=== PATIENT | female | born 1935 | race Caucasian/White ===

== ENCOUNTER 2022-04-22 12:24 | Emergency (ER) | payer MEDICARE ==
[~2022-04-22] VITALS: Ht 160 cm; Wt 86.2 kg
[2022-04-22 13:08] VITALS: BP 190/76
== END 2022-04-22 13:08 | disposition home or self-care (01) ==
LOC: FSED 12:30
DX: H61.21 Impacted cerumen, right ear (principal); I10 Essential (primary) hypertension; J44.9 Chronic obstructive pulmonary disease, unspecified
CPT/HCPCS: 99283

== ENCOUNTER 2022-12-12 12:00 | Outpatient (RCR) | payer MEDICARE | END 2023-01-10 | LOC: RESP 12:00 | PROVIDERS: ATTEND Internal Medicine | DX: J44.9 Chronic obstructive pulmonary disease, unspecified (principal) | CPT/HCPCS: 94626 ×9; G0238 ×9 ==

== ENCOUNTER 2023-01-11 14:40 | Outpatient (RCR) | payer MEDICARE | END 2023-02-09 | LOC: RESP 14:40 | PROVIDERS: ATTEND Internal Medicine | DX: J44.9 Chronic obstructive pulmonary disease, unspecified (principal) | CPT/HCPCS: 94626 ×8; G0238 ×8 ==

== ENCOUNTER 2023-12-09 10:47 | Emergency (ER) | payer MEDICARE ==
[~2023-12-09] VITALS: Ht 160 cm; Wt 84.5 kg
[2023-12-09] MEDS ORDERED: METHOCARBAMOL750 MG PO (10:59)
[2023-12-09] MEDS ORDERED: MELOXICAM7.5 MG PO (10:59)
[2023-12-09] MEDS: KETOROLAC TROMETHAMINE 60 MG/2 ML VIAL IM ONE (11:04)
[2023-12-09 11:15] VITALS: PULSE 87; RESP 18; TEMP 98.7; O2SAT 95
== END 2023-12-09 11:15 | disposition home or self-care (01) ==
LOC: FSED 10:51
DX: M25.511 Pain in right shoulder (principal); S46.811A Strain of other muscles, fascia and tendons at shoulder and upper arm level, right arm, initial encounter; M54.6 Pain in thoracic spine; X50.0XXA Overexertion from strenuous movement or load, initial encounter; Y92.89 Other specified places as the place of occurrence of the external cause; I10 Essential (primary) hypertension; J44.9 Chronic obstructive pulmonary disease, unspecified
CPT/HCPCS: 96372; 99283; J1885